=== PATIENT | female | born 1955 | race Caucasian/White ===

== ENCOUNTER 2017-11-04 09:50 | Emergency (ER) | payer OTHER | END 2017-11-04 12:02 | disposition home or self-care (01) | LOC: FTE 09:50 | DX: Z76.0 Encounter for issue of repeat prescription (principal); K21.9 Gastro-esophageal reflux disease without esophagitis | CPT/HCPCS: 99283; Z7502 ==

== ENCOUNTER 2017-12-07 09:54 | Emergency (ER) | payer OTHER ==
[2017-12-07 11:26] LABS: URINE BLOOD (Dip) POC Trace-intact (NEGATIVE); URINE GLUCOSE (Dip) POC Negative (NEGATIVE); URINE KETONES (Dip) POC Negative (NEGATIVE); URINE LEUKOCYTE EST (Dip) POC Negative (NEGATIVE); URINE NITRITE (Dip) POC Negative (NEGATIVE); URINE TOTAL PROTEIN POC Negative (NEGATIVE)
== END 2017-12-07 13:37 | disposition home or self-care (01) ==
LOC: FTE 09:54
DX: J06.9 Acute upper respiratory infection, unspecified (principal)
CPT/HCPCS: 73090; 73130-LT; 81003; 99283-25

== ENCOUNTER 2018-02-05 09:58 | Emergency (ER) | payer OTHER ==
[2018-02-05] MEDS: DIPHTH/TET/ACEL PERTUSS (ADULT) 0.5 ML VIAL IM* ×2 (12:00→13:26)
[2018-02-05] MEDS ORDERED: LIDOCAINE 1%/EPI 30 ML INJ INJ (12:54)
[2018-02-05] MEDS: LIDOCAINE 1% (MDV) 10 ML INJ INFIL (13:18)
[2018-02-05] MEDS: CEPHALEXIN 500 MG CAP PO (13:20)
[2018-02-05] MEDS: IBUPROFEN 600 MG TAB PO (13:20)
[2018-02-05] MEDS: ACETAMINOPHEN 500 MG TAB PO (13:21)
[2018-02-05] MEDS: TRIMETHOPRIM/SULFAMETHOX (DS) TAB PO (13:21)
== END 2018-02-05 14:01 | disposition home or self-care (01) ==
LOC: FTE 09:58
DX: L02.214 Cutaneous abscess of groin (principal)
CPT/HCPCS: 10060; 90715; 99284-25

== ENCOUNTER 2018-02-09 15:53 | Emergency (ER) | payer OTHER | END 2018-02-09 16:50 | disposition home or self-care (01) | LOC: FTE 15:53 | DX: L60.0 Ingrowing nail (principal) | CPT/HCPCS: 99283; Z7502 ==

== ENCOUNTER 2018-12-31 07:29 | Day surgery (SDC) | payer OTHER ==
[~2018-12-31 07:29] MED LIST: LIDOCAINE 2% (SDV) 5 ML INJ; SOD CHLORIDE 0.9% 1,000 ML IV
[2018-12-31] MEDS: BUPIVACAINE 0.25% (MPF) 30 ML INJ (08:24)
[2018-12-31] MEDS ORDERED: PROPOFOL 100 ML (08:52)
[2018-12-31] MEDS ORDERED: ROCURONIUM 50 MG INJ (08:52)
[2018-12-31] MEDS: CEFAZOLIN 2 GM/50 ML (PMX) 50 ML IVPB (09:00)
[2018-12-31] MEDS ORDERED: FENTAnyl 50 MCG/ML VIAL (09:01)
[2018-12-31] MEDS ORDERED: CEFAZOLIN 1 GM INJ (09:03)
[2018-12-31] MEDS ORDERED: GLYCOPYRROLATE 0.4 MG INJ (09:35)
[2018-12-31] MEDS ORDERED: NEOSTIGMINE 10 MG INJ (09:35)
[2018-12-31] MEDS ORDERED: KETOROLAC 30 MG INJ (09:46)
[2018-12-31] MEDS: HYDROmorphONE 1 MG/5 ML IV SYRINGE IV ×2 (09:58→10:15)
[2018-12-31] MEDS: ONDANSETRON 4 MG INJ IV (09:58)
[2018-12-31] MEDS: FENTAnyl 50 MCG/ML VIAL IV ×2 (09:58→10:15)
[2018-12-31] MEDS ORDERED: OXYCODONE/ACETAMINOPHEN (5/325) TAB PO ×2 (10:00)
[2018-12-31] MEDS ORDERED: KETOROLAC 30 MG INJ IV (10:00)
[2018-12-31] MEDS ORDERED: EPHEDrine SULFATE 50 MG/5 ML SYG IV (10:00)
[2018-12-31] MEDS ORDERED: hydrALAzine 20 MG INJ IV (10:00)
[2018-12-31] MEDS ORDERED: DIPHENHYDRAMINE 50 MG INJ IV (10:00)
[2018-12-31] MEDS ORDERED: FENTAnyl 50 MCG/ML VIAL IV ×2 (10:00)
[2018-12-31] MEDS ORDERED: HYDROmorphONE 1 MG/5 ML IV SYRINGE IV ×2 (10:00)
[2018-12-31] MEDS ORDERED: MEPERIDINE 25 MG INJ IV (10:00)
[2018-12-31] MEDS ORDERED: LABETALOL HCL 20MG INJ IV (10:00)
[2018-12-31] MEDS ORDERED: MIDAZOLAM 1 MG/ML 2 ML INJ IV (10:00)
[2018-12-31] MEDS ORDERED: ALBUTEROL 0.083% (NEB) 2.5 MG/3 ML AMP HHN (10:00)
[2018-12-31] MEDS ORDERED: METOCLOPRAMIDE 10 MG INJ IV (10:00)
[2018-12-31] MEDS: HYDROCODONE/APAP (5/325) TAB PO (10:20)
== END 2018-12-31 11:30 | disposition home or self-care (01) ==
LOC: SDS 07:29
DX: K80.10 Calculus of gallbladder with chronic cholecystitis without obstruction (principal)
CPT/HCPCS: 47562; 71045; 88304